=== PATIENT | female | born 1995 | race Two or more races ===

== ENCOUNTER 2021-08-15 14:42 | Emergency (ER) | payer OTHER ==
[~2021-08-15] VITALS: Ht 172.7 cm; Wt 122.5 kg
[2021-08-15] MEDS ORDERED: KETOROLAC TROMETHAMINE 15 MG INJ IVP ONE (15:00)
--- NOTE | 2021-08-15 15:08 | NUR ---
PT IS IN ROOM #2B. DR CONNELLY EVALUATED THE PT.
[2021-08-15 15:10] LABS: MEAN CORPUSCULAR HEMOGLOBIN 29.7 uug (24.7-32.8); MEAN CORPUSCULAR VOLUME 85.4 fL (75.5-95.3); PLATELET COUNT (AUTO) 342 K/uL (179-408)
[2021-08-15 15:14] LABS: CREATININE 0.8 mg/dL (0.6-1.3); POTASSIUM 3.4 mmol/L (3.5-5.1)
[2021-08-15] MEDS ORDERED: IBUP-1955 PO ×2 (15:38→15:50)
--- NOTE | 2021-08-15 16:00 | NUR ---
PT WAS D/C'd TO HOME. D/C INSTRUCTIONS GIVEN TO THE PT BY DR CONNELLY.
[2021-08-15 16:05] VITALS: BP 121/65
== END 2021-08-15 16:06 | disposition home or self-care (01) ==
LOC: ER 14:42
DX: R07.89 Other chest pain (principal)
CPT/HCPCS: 36415; 71045; 80048; 84484; 85025; 93005; 96374; 99285; J1885; 70030-TC; A4663; J7030